=== PATIENT | male | born 1990 | race Caucasian/White ===

== ENCOUNTER 2024-06-30 08:10 | Emergency (ER) | payer BC, MEDICAID, OTHER ==
[~2024-06-30] VITALS: Ht 185.4 cm; Wt 81.9 kg
[2024-06-30 08:44] VITALS: BP 115/73; PULSE 85; RESP 18; TEMP 98.5; O2SAT 98
[2024-06-30] MEDS ORDERED: CEPH500C PO (08:49)
[2024-06-30] MEDS ORDERED: NAPR-746 PO (08:49)
[2024-06-30] MEDS: ACETAMINOPHEN 500 MG TAB PO ONE (08:53)
== END 2024-06-30 09:08 | disposition home or self-care (01) ==
LOC: ER 08:10
DX: S91.102A Unspecified open wound of left great toe without damage to nail, initial encounter (principal); F17.210 Nicotine dependence, cigarettes, uncomplicated; X58.XXXA Exposure to other specified factors, initial encounter; Y93.89 Activity, other specified; Y92.89 Other specified places as the place of occurrence of the external cause; Y99.8 Other external cause status